=== PATIENT | female | born 1975 | race Two or more races ===

== ENCOUNTER 2019-12-06 19:22 | Emergency (ER) | payer OTHER ==
[~2019-12-06] VITALS: Ht 165.1 cm; Wt 56.2 kg
[2019-12-06 19:53] VITALS: BP 164/111
== END 2019-12-07 00:02 | disposition left against medical advice (07) ==
LOC: ER 19:22
DX: M54.6 Pain in thoracic spine (principal); Z53.21 Procedure and treatment not carried out due to patient leaving prior to being seen by health care provider

== ENCOUNTER 2019-12-07 08:44 | Emergency (ER) | payer MEDICAID, OTHER ==
[~2019-12-07] VITALS: Ht 165.1 cm; Wt 56.2 kg
[2019-12-07 08:57] VITALS: BP 166/126
[2019-12-07] MEDS ORDERED: cloNIDine HCL 0.1 MG TAB PO ONE (09:30)
[2019-12-07 09:50] LABS: Urine Bacteria FEW /hpf (None Seen); Urine Blood Negative /uL (Negative); Urine Specific Gravity 1.019 (1.001-1.035); Urine WBC 56 /hpf (0 - 5)
== END 2019-12-07 10:44 | disposition home or self-care (01) ==
LOC: ER 08:44
DX: M54.6 Pain in thoracic spine (principal); N39.0 Urinary tract infection, site not specified; I10 Essential (primary) hypertension
CPT/HCPCS: 72070; 81001; 81025